=== PATIENT | female | born 1990 | race Hispanic/Latino ===

== ENCOUNTER 2019-06-04 09:25 | Emergency (ER) | payer MEDICAID, OTHER ==
[2019-06-04] MEDS ORDERED: CYCLOBENZAPRINE HCL 10 MG TABLET ONE (09:44)
[2019-06-04] MEDS ORDERED: LIDOCAINE 5% TOPICAL PATCH TP ONE (09:44)
[2019-06-04] MEDS ORDERED: ACETAMINOPHEN 325 MG TAB ONE (09:44)
== END 2019-06-04 11:13 | disposition home or self-care (01) ==
LOC: EDH 09:25
DX: O26.891 Other specified pregnancy related conditions, first trimester (principal); M43.6 Torticollis; R20.2 Paresthesia of skin; Z3A.09 9 weeks gestation of pregnancy